=== PATIENT | female | born 1955 | race Caucasian/White ===

== ENCOUNTER 2018-02-18 08:49 | Day surgery (SDC) | payer OTHER ==
[2018-02-08 10:13] VITALS: BMI 26.5
[2018-02-18] MEDS ORDERED: PROPOFOL 20 ML ONE ×2 (09:56)
[2018-02-18 11:10] VITALS: TEMP 97.9
[2018-02-18 12:23] VITALS: BP 140/70; PULSE 74
--- NOTE | 2018-02-19 13:38 | PATH ---
Surgical Pathology Report Patient Name: MADHAVI LEON [facility]. Rec. #: [id number] /Age/Gender: 1955 (Age: 62) / F Account: [id number] Location: [facility] Taken: 02/18/2018 Received: 02/18/2018 Reported: 02/19/2018 Physicians: Helio Castro M.D. Specimen(s) Received CECAL POLYP Clinical History History of polyps, family history of colon cancer Postoperative diagnosis: Diverticulosis, colon polyp Final Diagnosis CECUM, POLYP, BIOPSY: TUBULAR ADENOMA. Electronically Signed Tammie Moreno M.D. Gross Description Received in formalin, labeled "cecal polyp" is a [place], irregular portion of soft tissue measuring 1.1 cm. in greatest dimension. The specimen is submitted in toto in one cassette. 02/18/201802/18/2018
== END 2018-02-18 12:00 | disposition home or self-care (01) ==
LOC: FASU-ENDO 08:49
PROVIDERS: ATTEND Internal Medicine Gastroenterology
PROC: 0DBH8ZX Excision of Cecum, Via Natural or Artificial Opening Endoscopic, Diagnostic (ICD-10-PCS; principal; 2018-02-18 10:00)
DX: Z86.010 Personal history of colon polyps (principal); Z80.0 Family history of malignant neoplasm of digestive organs; D12.0 Benign neoplasm of cecum; K57.30 Diverticulosis of large intestine without perforation or abscess without bleeding
CPT/HCPCS: 82962; 88305-TC

== ENCOUNTER 2022-12-07 07:21 | Day surgery (SDC) | payer OTHER ==
[2022-12-06 09:22] VITALS: BMI 22.3
[2022-12-07] MEDS ORDERED: PROPOFOL 120 ML ONE (08:08)
[2022-12-07 10:18] VITALS: RESP 20; TEMP 97
[2022-12-07 10:23] VITALS: BP 101/52; PULSE 67
== END 2022-12-07 09:35 | disposition home or self-care (01) ==
LOC: FASU-ENDO 07:21
PROVIDERS: ATTEND Internal Medicine Gastroenterology
PROC: 0DBH8ZX Excision of Cecum, Via Natural or Artificial Opening Endoscopic, Diagnostic (ICD-10-PCS; 2022-12-07)
PROC: 0DBK8ZX Excision of Ascending Colon, Via Natural or Artificial Opening Endoscopic, Diagnostic (ICD-10-PCS; principal; 2022-12-07 08:16)
DX: Z12.11 Encounter for screening for malignant neoplasm of colon (principal); D12.0 Benign neoplasm of cecum; D12.2 Benign neoplasm of ascending colon; K57.30 Diverticulosis of large intestine without perforation or abscess without bleeding; Z86.010 Personal history of colon polyps
CPT/HCPCS: 82962; 88305-TC

== ENCOUNTER 2023-10-01 08:12 | Day surgery (SDC) | payer OTHER ==
[2023-09-24 12:14] VITALS: BMI 23.9
[2023-10-01 10:39] VITALS: PULSE 56; RESP 18; TEMP 97.2
[2023-10-01 10:42] VITALS: BP 106/57
== END 2023-10-01 11:00 | disposition home or self-care (01) ==
LOC: FASU-ENDO 08:12
PROVIDERS: ATTEND Internal Medicine Gastroenterology
PROC: 0DB68ZX Excision of Stomach, Via Natural or Artificial Opening Endoscopic, Diagnostic (ICD-10-PCS; 2023-10-01)
PROC: 0DB98ZX Excision of Duodenum, Via Natural or Artificial Opening Endoscopic, Diagnostic (ICD-10-PCS; principal; 2023-10-01 09:48)
DX: K29.50 Unspecified chronic gastritis without bleeding (principal); R10.13 Epigastric pain
CPT/HCPCS: 82962; 88305-TC; 88342-TC